=== PATIENT | female | born 1990 | race African-American/Black ===

== ENCOUNTER 2021-05-23 15:58 | Emergency (ER) | payer OTHER ==
[~2021-05-23] VITALS: Ht 175.3 cm; Wt 172.4 kg
[~2021-05-23 15:58] MED LIST: BROMOCRIPTINE ME5 MG PO; JANUVIA25 MG PO; NAPROSYN500 MG PO
[2021-05-23 17:15] LABS: ABSOLUTE NEUTROPHILS 3.8 thou/uL (1.4-8.2); BASOPHILS 0.8 % (0.0-2.0); EOSINOPHILS 6.3 % (0.0-3.0); HEMATOCRIT 39.2 % (37.0-47.0); HEMOGLOBIN 12.5 gm/dL (12.0-15.0); LYMPHOCYTES 43.8 % (24.0-44.0); MCH 25.5 pg (26.0-34.0); MCV 79.8 fL (80.0-100.0); MONOCYTES 6.8 % (1.0-8.0); PLATELET COUNT 352 thou/uL (150-400); POLYS 42.3 % (36.0-66.0); RBC 4.91 mil/uL (4.20-5.00); RDW 16.1 % (10.5-14.5); WBC 8.9 thou/uL (4.0-11.0)
[2021-05-23 17:24] LABS: CALCIUM 8.8 mg/dL (8.5-10.1); CREATININE 0.9 mg/dL (0.6-1.0); POTASSIUM 3.9 mmol/L (3.5-5.1)
[2021-05-23 17:34] LABS: ALBUMIN 3.2 g/dL (3.4-5.0); TOTAL BILIRUBIN 0.2 mg/dL (0.2-1.0); TOTAL PROTEIN 7.5 g/dL (6.4-8.2)
[2021-05-23 20:04] VITALS: BP 126/78
--- NOTE | 2021-05-25 07:38 | EKG ---
[address] [address] ELECTROCARDIOGRAM REPORT Name: WISAM MÁRQUEZ Room #: DEP 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 05/25/21 0737 [id number] Sanjeev Granado MD, FACC /EPI
== END 2021-05-23 20:07 | disposition home or self-care (01) ==
LOC: ER 15:58
PROVIDERS: Emergency Medicine
DX: R07.89 Other chest pain (principal); E11.65 Type 2 diabetes mellitus with hyperglycemia; E66.01 Morbid (severe) obesity due to excess calories; Z68.43 Body mass index [BMI] 50.0-59.9, adult; Z90.89 Acquired absence of other organs; Z88.8 Allergy status to other drugs, medicaments and biological substances; Z88.5 Allergy status to narcotic agent

== ENCOUNTER 2021-07-24 20:49 | Emergency (ER) | payer OTHER ==
[~2021-07-24] VITALS: Ht 175.3 cm; Wt 172.4 kg
[2021-07-24] MEDS ORDERED: OZEMPIC1 MG/0.71 (21:06)
[2021-07-24] MEDS ORDERED: BROMOCRIPTINE2.5 M1 PO (21:08)
[2021-07-24 21:57] LABS: ABSOLUTE NEUTROPHILS 3.7 thou/uL (1.4-8.2); BASOPHILS 1.1 % (0.0-2.0); EOSINOPHILS 6.7 % (0.0-3.0); HEMATOCRIT 36.5 % (37.0-47.0); HEMOGLOBIN 11.9 gm/dL (12.0-15.0); MCHC 32.7 g/dL (28.0-37.0); MCV 79.5 fL (80.0-100.0); MONOCYTES 6.2 % (1.0-8.0); PLATELET COUNT 369 thou/uL (150-400); RBC 4.59 mil/uL (4.20-5.00); RDW 14.7 % (10.5-14.5); WBC 9.5 thou/uL (4.0-11.0)
[2021-07-24 22:10] LABS: CALCIUM 8.5 mg/dL (8.5-10.1); CREATININE 0.8 mg/dL (0.6-1.0); POTASSIUM 3.9 mmol/L (3.5-5.1)
[2021-07-24 22:21] LABS: TOTAL BILIRUBIN 0.1 mg/dL (0.2-1.0); TOTAL PROTEIN 7.3 g/dL (6.4-8.2)
[2021-07-24 23:15] VITALS: BP 142/70
--- NOTE | 2021-07-25 12:34 | EKG ---
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 : 1990 Requested By: Beau Pedersen Order Number: [id number] MD: Eugene Beebe Measurements Intervals [place] Rate: 95 P: 14 [place]: 141 QRS: 45 QRSD: 80 T: 69 QT: 355 QTc: 447 Interpretive Statements Sinus rhythm No significant abnormality Compared to ECG 05/23/2021 16:07:51 T-wave abnormality no longer present Electronically Signed On 07-25-2021 12:34:20 [employer] by Eugene Beebe [email or web address] <ELECTRONICALLY SIGNED> By: Eugene Beebe MD, [facility] 07/25/21 1234 2149 2149 Eugene Beebe MD, FACC /EPI
[2021-07-25] MEDS ORDERED: FLEXERIL PO (14:20)
== END 2021-07-24 23:10 | disposition home or self-care (01) ==
LOC: ER 20:49
PROVIDERS: Emergency Medicine
DX: M54.50 Low back pain, unspecified (principal); M54.2 Cervicalgia; E66.01 Morbid (severe) obesity due to excess calories; E11.9 Type 2 diabetes mellitus without complications; Z68.43 Body mass index [BMI] 50.0-59.9, adult; Z90.49 Acquired absence of other specified parts of digestive tract; Z98.890 Other specified postprocedural states; Z79.899 Other long term (current) drug therapy; Z79.891 Long term (current) use of opiate analgesic; Z88.6 Allergy status to analgesic agent; Z88.5 Allergy status to narcotic agent; Z88.8 Allergy status to other drugs, medicaments and biological substances

== ENCOUNTER 2021-10-01 15:46 | Emergency (ER) | payer OTHER ==
[~2021-10-01] VITALS: Ht 175.3 cm; Wt 172.4 kg
[~2021-10-01 15:46] MED LIST changes: +BROMOCRIPTINE2.5 M1 PO; +FLEXERIL PO; +OZEMPIC1 MG/0.71
[2021-10-01 17:05] LABS: ABSOLUTE NEUTROPHILS 4.7 thou/uL (1.4-8.2); BASOPHILS 0.5 % (0.0-2.0); EOSINOPHILS 6.9 % (0.0-3.0); HEMATOCRIT 39.5 % (37.0-47.0); HEMOGLOBIN 12.6 gm/dL (12.0-15.0); LYMPHOCYTES 38.2 % (24.0-44.0); MCH 25.7 pg (26.0-34.0); MCHC 31.9 g/dL (28.0-37.0); MCV 80.5 fL (80.0-100.0); MONOCYTES 7.6 % (1.0-8.0); PLATELET COUNT 401 thou/uL (150-400); POLYS 46.8 % (36.0-66.0); RDW 15.2 % (10.5-14.5); WBC 9.9 thou/uL (4.0-11.0)
[2021-10-01 17:28] LABS: CALCIUM 8.8 mg/dL (8.5-10.1); CREATININE 0.7 mg/dL (0.6-1.0)
[2021-10-01 17:34] LABS: ALBUMIN 3.2 g/dL (3.4-5.0); TOTAL BILIRUBIN 0.1 mg/dL (0.2-1.0); TOTAL PROTEIN 7.6 g/dL (6.4-8.2)
[2021-10-01 18:04] LABS: URINE BILIRUBIN NEGATIVE (Negative); URINE BLOOD NEGATIVE (Negative); URINE CLARITY CLEAR; URINE COLOR YELLOW; URINE GLUCOSE-RANDOM* 3+ (Negative); URINE KETONES TRACE (Negative); URINE LEUKOCYTES-REFLEX NEGATIVE (Negative); URINE NITRITE-REFLEX NEGATIVE (Negative); URINE PROTEIN (DIPSTICK) 2+ (Negative); URINE SPECIFIC GRAVITY 1.025 (1.005-1.035); URINE UROBILINOGEN 0.2 E.U./dl (0.2-1.0)
[2021-10-01] MEDS ORDERED: ZOFRAN ODT4 MG PO (18:57)
[2021-10-01] MEDS ORDERED: PEPCID20 MG PO (18:57)
[2021-10-01 19:10] VITALS: BP 146/98
== END 2021-10-01 19:12 | disposition home or self-care (01) ==
LOC: ER 15:46
PROVIDERS: Emergency Medicine
DX: E11.65 Type 2 diabetes mellitus with hyperglycemia (principal); R10.84 Generalized abdominal pain; E78.00 Pure hypercholesterolemia, unspecified; Z90.89 Acquired absence of other organs; Z79.899 Other long term (current) drug therapy; Z88.8 Allergy status to other drugs, medicaments and biological substances